=== PATIENT | female | born 1985 | race Asian ===

== ENCOUNTER 2020-06-28 15:07 | Emergency (ER) | payer OTHER ==
[~2020-06-28] VITALS: Ht 157.5 cm; Wt 56.2 kg
[2020-06-28 15:19] VITALS: Ht 157.5 cm; Wt 56.2 kg
[2020-06-28 16:43] VITALS: BP 108/71
== END 2020-06-28 16:43 | disposition home or self-care (01) ==
LOC: ED 15:07
DX: H61.22 Impacted cerumen, left ear (principal); Z88.0 Allergy status to penicillin; Z88.2 Allergy status to sulfonamides